=== PATIENT | female | born 1950 | race Caucasian/White ===

== ENCOUNTER → 2017-11-17 | Outpatient (CLI) | payer OTHER ==
[~2017-11-17] MED LIST: ADULT LOW DOSE81 MG; CALCIUM 500 +1 EAC4; CELEXA 10 MG TA10 M1; CO Q-10200 MG; HUMALOG PE100 UNIT/1; LANTUS; LEVOTHYROXIN0.112 M1; LISINOPRIL20 MG; METFORMIN; OMEGA-3100 MG; OMEGA-31000 MG; PRAVASTATIN SOD40 MG
== END ==
LOC: RAD 01:07
DX: Z12.31 Encounter for screening mammogram for malignant neoplasm of breast (principal)

== ENCOUNTER → 2018-11-23 | Outpatient (CLI) | payer OTHER, MEDICARE | LOC: RAD 10:14 | DX: Z12.31 Encounter for screening mammogram for malignant neoplasm of breast (principal) ==

== ENCOUNTER → 2019-12-14 | Outpatient (CLI) | payer OTHER, MEDICARE | LOC: RAD 12:50 | DX: Z12.31 Encounter for screening mammogram for malignant neoplasm of breast (principal) ==

== ENCOUNTER → 2020-12-21 | Outpatient (CLI) | payer OTHER, MEDICARE | LOC: BC 12-18 10:29 | PROVIDERS: ATTEND Internal Medicine | DX: Z12.31 Encounter for screening mammogram for malignant neoplasm of breast (principal) ==

== ENCOUNTER → 2021-12-28 | Outpatient (CLI) | payer OTHER, MEDICARE | LOC: BC 08:50 | PROVIDERS: ATTEND Internal Medicine | DX: Z12.31 Encounter for screening mammogram for malignant neoplasm of breast (principal); N64.89 Other specified disorders of breast ==